=== PATIENT | female | born 1985 | race Caucasian/White ===

== ENCOUNTER 2020-11-01 22:40 | Emergency (ER) | payer OTHER, SELFPAY ==
--- NOTE | 2020-11-01 23:32 | ED_ITS ---
HPI - General Adult General Chief complaint: ETOH/Substance Use Stated complaint: MULTIPLE COMPLAINTS Time Seen by Provider: 11/01/20 23:20 Source: other (Information came from the patient's friend, Fiona ) Mode of arrival: ambulatory Limitations: other (Intoxication) History of Present Illness HPI narrative: 34-year-old female who was brought to the emergency department by her friend, Fiona for evaluation of alcohol intoxication, possible cocaine ingestion and depression with suicidal ideation. The information came from the patient's friend, Fiona. Apparently the patient drank at least 6-10 shots of alcohol this evening. She may have also use cocaine. The patient was at a bowling alley and she called her friend who then picked her up. Apparently, the patient's grandmother and this is caused the patient to be very depressed. Also, the patient's cat and she was recently stood up on a date which contributed to her depression. Here in the emergency department she states that she can not take it anymore and she just wants to . She is very tearful and appears to be acutely intoxicated. She has no complaints. Related Data Allergies Allergy/AdvReac Type Severity Reaction Status Date / Time No Known Allergies Allergy Verified 11/01/20 23:28 Review of Systems Review of Systems: Yes all other systems are reviewed and are negative Neurologic: Reports Abnormal speech present [facility] Past Medical History [facility] Narrative: The patient has a history of depression, eating disorder with bulimia. She does drink alcohol, she occasionally smokes cigarettes, she occasionally uses cocaine Medical History No known health problems Social History Social History Alcohol intake: current Alcohol intake frequency: holidays/special occasions only Alcohol type: hard liquor Smoking Status: Never smoker Smoked in Last 30 Days: No Use of substances other than those prescribed or required for medical reasons: No Advance Directives: No Physical Exam Vital Signs: Vital Signs: Last Vital Signs Temp 98.4 F 11/02/20 06:00 Pulse 92 11/02/20 06:00 Resp 16 11/02/20 06:00 BP 124/63 11/02/20 06:00 Pulse Ox 99 11/02/20 06:00 Body Mass Index 28.3 Const: General: other (Tearful, cooperative, continues to repeat that she wants to ) Orientation/consciousness: oriented to person and oriented to place HENMT: Head: Yes normal to inspection, Yes normocephalic and Yes atraumatic Ears: external ears normal General nose exam: Normal external nose present Face and sinus: Yes normal facial exam Mouth: Normal oral and palatal mucosa present Throat: Yes posterior oropharynx normal Eyes: Periorbital: periorbital findings normal Eyelids: Yes eyelids normal Conjunctivae: conjunctivae normal Sclerae: sclerae normal Corneas: corneas normal Pupils: Equal, round and reactive pupils present Direct Ophthalmoscopy: normal light reflex Neck: Neck: Yes full ROM, Yes no lymphadenopathy, Yes no meningeal signs, Yes trachea midline and Yes supple Chest: Chest palpation & inspection: normal inspection of the chest and normal palpation of entire chest wall Resp: Effort & Inspection: normal respiratory effort and able to speak in complete sentences Auscultation: clear to auscultation bilaterally Cardio: Rate: regular rate Rhythm: regular rhythm Heart sounds: S1 normal heart sound present, S2 normal heart sound present and no murmurs GI: Inspection: Yes normal to inspection Palpation (GI): Soft to palpation, nontender, no guarding, not rigid and No hepatosplenomegaly present : General: Yes no CVA tenderness Back/Spine/Pelvis: Back: no CVA tenderness Cervical Spine: normal cervical lordosis Thoracic/Lumbar Spine: thoracic and lumbar spine normal to inspection Skin: Lesions: no lesions Rashes: no rashes Wounds: no wounds Neuro: General: oriented to person, oriented to place and no meningeal signs Cranial nerves: Yes CN's II-XII intact bilaterally and Yes Equal, round and reactive pupils present Cognition (Neuro): normal cognition Speech: Abnormal speech present Motor exam (neuro): 5/5 motor strength present throughout Extrem: General: Yes normal to inspection and Yes full ROM Psych: Appearance: well kempt Speech and movement: Normal speech and movement present Affect: Anxious affect present and Other affect and mood findings present (Depressed, tearful) Attitude: cooperative Thought content: Suicidality present Course Course Course Narrative: 34-year-old female who presents emergency department for evaluation of acute alcohol intoxication, depression and suicidal ideation, patient may have also used cocaine. Physical examination revealed a very tearful woman who appears to be acutely intoxicated. I do not want to use benzodiazepines in her since she most likely has a very high blood alcohol level. Therefore she, she was ordered to get Haldol 5 mg orally and Benadryl 50 mg orally to try to help calm her down. I did order laboratory evaluation as well, this patient will need to be kept in the emergency department today she is sober and can talk to crisis. 0648: The patient's laboratory evaluation did reveal an elevated alcohol level of 213. Her labs were otherwise unremarkable. Patient's COVID-19 test was negative. Given the patient's suicidal statements, the patient was placed on a Section 12 and will be kept in the emergency department though she is evaluated by a crisis counselor. Medical Decision Making Lab Data Result diagrams: 11/02/20 00:29 11/02/20 00:29 Labs: Lab Results 11/02/20 11/02/20 11/02/20 Range/Units 00:29 00:29 00:29 WBC 8.3 (4.8-10.8) X10*3/uL RBC 4.81 (4.20-5.50) X10*6/uL Hgb 12.7 (12.0-16.0) g/dl Hct 40.2 (37-47) % MCV 83.6 (80-98) fL MCH 26.4 L (27.0-33.0) pg MCHC 31.6 (31.0-35.0) g/dl RDW 14.7 (11.0-16.0) % Plt Count 380 (160-400) X10*3/uL MPV 11.3 (9.4-12.3) fL Immature Gran % (Auto) 0.2 (0.0-0.4) % Neut % (Auto) 77.8 H (45-73) % Lymph % (Auto) 16.7 L (20-40) % [place] % (Auto) 4.1 (2-11) % Eos % (Auto) 0.4 (0-4) % Baso % (Auto) 0.8 (0-2) % Lymph # (Auto) 1.4 (1.2-4.9) X10*3/uL [place] # (Auto) 0.3 (0.1-1.2) X10*3/uL Eos # (Auto) 0.0 (0.0-0.4) X10*3/uL Baso # (Auto) 0.1 (0.0-0.2) X10*3/uL Abs Immat Gran (auto) 0.02 (0.00-0.03) X10*3/uL Absolute Neuts (auto) 6.5 (2.0-8.3) X10*3/uL Absolute Nucleated RBC 0.000 (0.0-0.012) X10*3/uL Nucleated RBC % (auto) 0.0 (0.0-0.2) /100WBC Sodium 143 (135-145) mmol/L Potassium 3.9 (3.3-5.1) mmol/L Chloride 109 H (96-108) mmol/L Carbon Dioxide 23 (22-29) mmol/L Anion Gap 15 (12-20) BUN 7 L (9-16) mg/dL Creatinine 0.76 (0.5-1.4) mg/dL Estim Creat Clear Calc 97.7 Estimated GFR > 60 Random Glucose 99 (60-115) mg/dL Calcium 9.5 (8.4-10.2) mg/dL Total Bilirubin 0.2 (0.0-1.0) mg/dL AST 16 (5-31) U/L ALT 13 (0-31) U/L Alkaline Phosphatase 51 (39-117) U/L Total Protein 7.5 (6.5-8.0) g/dL Albumin 4.4 (3.5-5.0) g/dL Urine Test (NEGATIVE) Urine Opiates Screen (Not Detect) Ur Barbiturates Screen (Not Detect) Ur Phencyclidine Scrn (Not Detect) Ur Amphetamines Screen (Not Detect) U Benzodiazepines Scrn (Not Detect) Urine Cocaine Screen (Not Detect) U Marijuana (THC) Screen (Not Detect) Ethyl Alcohol 213 mg/dL COVID-19 ([facility]) (Negative) COVID-19 Clin Com 11/02/20 11/02/20 11/02/20 Range/Units 00:29 01:05 01:05 WBC (4.8-10.8) X10*3/uL RBC (4.20-5.50) X10*6/uL Hgb (12.0-16.0) g/dl Hct (37-47) % MCV (80-98) fL MCH (27.0-33.0) pg MCHC (31.0-35.0) g/dl RDW (11.0-16.0) % Plt Count (160-400) X10*3/uL MPV (9.4-12.3) fL Immature Gran % (Auto) (0.0-0.4) % Neut % (Auto) (45-73) % Lymph % (Auto) (20-40) % [place] % (Auto) (2-11) % Eos % (Auto) (0-4) % Baso % (Auto) (0-2) % Lymph # (Auto) (1.2-4.9) X10*3/uL [place] # (Auto) (0.1-1.2) X10*3/uL Eos # (Auto) (0.0-0.4) X10*3/uL Baso # (Auto) (0.0-0.2) X10*3/uL Abs Immat Gran (auto) (0.00-0.03) X10*3/uL Absolute Neuts (auto) (2.0-8.3) X10*3/uL Absolute Nucleated RBC (0.0-0.012) X10*3/uL Nucleated RBC % (auto) (0.0-0.2) /100WBC Sodium (135-145) mmol/L Potassium (3.3-5.1) mmol/L Chloride (96-108) mmol/L Carbon Dioxide (22-29) mmol/L Anion Gap (12-20) BUN (9-16) mg/dL Creatinine (0.5-1.4) mg/dL Estim Creat Clear Calc Estimated GFR Random Glucose (60-115) mg/dL Calcium (8.4-10.2) mg/dL Total Bilirubin (0.0-1.0) mg/dL AST (5-31) U/L ALT (0-31) U/L Alkaline Phosphatase (39-117) U/L Total Protein (6.5-8.0) g/dL Albumin (3.5-5.0) g/dL Urine Test NEGATIVE (NEGATIVE) Urine Opiates Screen Not Detected (Not Detect) Ur Barbiturates Screen Not Detected (Not Detect) Ur Phencyclidine Scrn Not Detected (Not Detect) Ur Amphetamines Screen Not Detected (Not Detect) U Benzodiazepines Scrn Not Detected (Not Detect) Urine Cocaine Screen Not Detected (Not Detect) U Marijuana (THC) Screen Not Detected (Not Detect) Ethyl Alcohol mg/dL COVID-19 ([facility]) Negative (Negative) COVID-19 Clin Com See Note
[2020-11-01 23:39] VITALS: BP 00/00; PULSE 78; RESP 24; TEMP 36.7; O2SAT 98; BMI 28.3
[2020-11-01] MEDS: diphenhydrAMINE HCL 25 MG TABLET 50 MG PO (23:45)
[2020-11-01] MEDS: HaloperidoL 5 MG TABLET PO (23:45)
[2020-11-02] VITALS (9 sets, daily range): BP systolic 106–147; BP diastolic 49–86; PULSE 60–92; RESP 16–18; TEMP 36.6–36.9; O2SAT 96–99
[2020-11-02 00:37] LABS: Basophils Absolute Auto 0.1 X10*3/uL (0.0-0.2); Basophils Percent Auto 0.8 % (0-2); Eosinophils Percent Auto 0.4 % (0-4); Hematocrit 40.2 % (37-47); Hemoglobin 12.7 g/dl (12.0-16.0); Imm Gran Abs Auto 0.02 X10*3/uL (0.00-0.03); Imm Gran Pct Auto 0.2 % (0.0-0.4); Lymphocytes Absolute Auto 1.4 X10*3/uL (1.2-4.9); Lymphocytes Percent Auto 16.7 % (20-40); MANUAL DIFF FLAG NO; Mean Corpuscular HGB Conc 31.6 g/dl (31.0-35.0); Mean Corpuscular Hemoglobin 26.4 pg (27.0-33.0); Mean Corpuscular Volume 83.6 fL (80-98); Mean Platelet Volume 11.3 fL (9.4-12.3); Monocytes Absolute Auto 0.3 X10*3/uL (0.1-1.2); Monocytes Percent Auto 4.1 % (2-11); Neutrophils Absolute Auto 6.5 X10*3/uL (2.0-8.3); Neutrophils Percent Auto 77.8 % (45-73); Platelet Count 380 X10*3/uL (160-400); Red Blood Count 4.81 X10*6/uL (4.20-5.50); Red Cell Distribution Width 14.7 % (11.0-16.0); White Blood Count 8.3 X10*3/uL (4.8-10.8)
[2020-11-02 00:56] LABS: Ethanol 213 mg/dL
[2020-11-02 00:57] LABS: COVID-19 Test Negative (Negative)
[2020-11-02 01:01] LABS: Alanine Aminotransferase 13 U/L (0-31); Albumin Level 4.4 g/dL (3.5-5.0); Alkaline Phosphatase 51 U/L (39-117); Anion Gap 15 (12-20); Aspartate Amino Transferase 16 U/L (5-31); Bilirubin Total 0.2 mg/dL (0.0-1.0); Blood Urea Nitrogen 7 mg/dL (9-16); Calcium 9.5 mg/dL (8.4-10.2); Carbon Dioxide 23 mmol/L (22-29); Chloride 109 mmol/L (96-108); Creatinine Clr Calc Pharmacy 97.7; Estimated Glomerular Filt Rate > 60; Glucose Random 99 mg/dL (60-115); Potassium 3.9 mmol/L (3.3-5.1); Sodium 143 mmol/L (135-145); Total Protein 7.5 g/dL (6.5-8.0)
[2020-11-02 01:18] LABS: UPreg QC Valid YES; Urine Pregnancy NEGATIVE (NEGATIVE)
[2020-11-02 01:44] LABS: Amphetamine Screen Urine Not Detected (Not Detect); Barbiturates, Urine Not Detected (Not Detect); Benzodiazepines Screen Urine Not Detected (Not Detect); Cannabinoid Screen Urine Not Detected (Not Detect); Cocaine Screen Urine Not Detected (Not Detect); Opiate Screen Urine Not Detected (Not Detect); Phencyclidine Screen Urine Not Detected (Not Detect)
--- NOTE | 2020-11-02 01:50 | PC.NURSE ---
PATIENT HAS BEEN TEARFUL, UNABLE TO HOLD STILL FOR BLOOD PRESSURE OR OTHER VITALS. SKIN IS P,D,W. FRIEND AT BEDSIDE. PATIENT WILL NOT LET FRIEND GO. PATIENT HAVING AN EPISODE OF INCONTINENCE. CHANGED AND CLEANED
--- NOTE | 2020-11-02 04:50 | PC.NURSE ---
FAXED TO [facility]
--- NOTE | 2020-11-02 06:29 | PC.NURSE ---
patient waking up and stating that she was intoxicated and does not want to harm herself of anyone else.
--- NOTE | 2020-11-02 15:57 | MHC.RECOVSUP ---
Recovery Support note: Patient is a 34 year old [place] speaking female who presented to [facility] ED after making suicidal statements while intoxicated. Patient is currently awaiting a [facility] evaluation however she was agreeable to a consultation to discuss her substance use and treatment options. 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 Patient reports occasional drinking, about once a month or so. Patient reports that she is typically the responsible one in her group of friends. Patient's grandmother around a month ago and patient reports that she was very close to her grandmother and that her grandmother was responsible for raising her. Patient reports she has been having a hard time dealing with the grief and that she has had thoughts of SI over the past month but does not have plan or intent. Patient reports she has never made any suicidal attempts or gestures. Patient reports that she can't believe she made those statements as she does not feel suicidal at this time. Patient reports that she has an eating disorder and that she did not eat much at all yesterday. Patient reports she started drinking due to the stress and grief and that it quickly got to be too much because she had no food in her. Patient reports that she is well supported by friends and eating disorder support groups. Patient reports she feels safe to discharge at this time. Discussed outpatient therapy and financial counseling for insurance with patient and provided information on these resources.
--- NOTE | 2020-11-02 16:00 | PC.NURSE ---
Patient has been seen by Aleks from the CARE team. This RN also faxed to [facility] as they stated they never recieved prior fax.
[2020-11-02] MEDS: Acetaminophen 325 MG TABLET 650 MG PO (17:31)
== END 2020-11-02 21:56 | disposition home or self-care (01) ==
PROVIDERS: Emergency Provider Emergency Medicine Emergency Medical Services
DX: F10.129 Alcohol abuse with intoxication, unspecified (principal); F14.129 Cocaine abuse with intoxication, unspecified; F33.1 Major depressive disorder, recurrent, moderate; R45.851 Suicidal ideations; Y90.7 Blood alcohol level of 200-239 mg/100 ml; Z20.822 Contact with and (suspected) exposure to COVID-19; Z71.51 Drug abuse counseling and surveillance of drug abuser
CPT/HCPCS: 36415; 80053; 80307; 80320; 81025; 85025; 87635; 96374; 99284; 99285; Q0163